=== PATIENT | male | born 1950 ===

== ENCOUNTER 2022-01-04 21:07 | Emergency (ER) | payer BC, OTHER ==
[2022-01-04] MEDS ORDERED: AMIODARONE HCL 150 MG/3 ML INJ IV ONE (21:08)
[2022-01-04] MEDS ORDERED: EPINEPHrine 1 MG/10 ML SYR IV ONE (21:08)
[2022-01-04] MEDS ORDERED: ETOMIDATE 20 MG/10 ML VIAL IV ONE (21:08)
[2022-01-04] MEDS ORDERED: SODIUM CHL 0.9% 1000 ML BAG IV ONE (21:08)
[2022-01-04] MEDS ORDERED: SUCCINYLCHOLINE 20 MG/ML (10 ML) IV ONE (21:08)
--- OUTSIDE RECORDS SUMMARY | 2022-01-04 21:13 | XMS REPORT | Continuity of Care Document ---
:1950 Author Organization [facility] t Address [address] [place] [address] Care Team Providers Name Role Phone Jania ENAMORADO Primary Care Physician DANA ESPAÑA Attending Clinician Unavailable Sigrid Attending Clinician Unavailable Jania ENAMORADO Attending Clinician THOMAS Attending Clinician Unavailable Sigrid Admitting Clinician Unavailable THOMAS Admitting Clinician Unavailable Payers Payer Name Policy Type Policy Number Effective Date Expiration Date Carine mikhail [place]: [id number] 2015 [employer] 00:00:00 STATE [facility] [id number] COMPANIES - PLAN F 00:00:00 (MEDICARE SUPPLEMENT) [place]: [id number] 2015 [employer] 00:00:00 - [facility] Problems Condition Condition Condition Status Onset Resolution Last Treating Co mments Source Name Details Category Date Date Treatment Clinician Date OTHER Diagnosis Active 2020-102021-10-10 Mem oria AMNESIA 2- 10:15:00 l OTHER 00:00: Riley AMNESIA 00 Active 10/03/2021 [facility] Basal cell Basal Cell Problem Active M [facility] carcinoma Carcinoma da of skin of Skin Medical Group Melanocyti Melanocyti Problem Active [facility] c nevus c Nevus [facility] Type 2 Type 2 Problem Active [place] diabetes Diabetes da mellitus Mellitus Medica l Group Type 2 Type 2 Problem Active [place] diabetes Diabetes da mellitus Mell[facility] Medica l without without Group complicati Complicati on on Essential Essential Problem Active [facility] hypertensi Hypertensi da on on Medical Group Coronary Coronary Problem Active [facility] [facility] arterioscl Arterioscl da erosis erosis Medical Group Actinic Actinic Problem Active [facility] keratosis Keratosis [facility] Shoulder Shoulder Problem Active [facility] pain Pain [facility] Pain in Pain in Problem Active [facility] elbow Elbow [facility] Fatigue Fatigue Problem Active [facility] Laboratory Laboratory Problem Active M [facility] test Test da result Result Medical abnormal Abnormal Group Amnesia Problem Active 2021-11-09 Shaheed tyson (finding) 03:06:20 l Amnesia Satartia (finding) Active Problem 11/09/2021 [facility] Hallucinat Problem Active 2021-11-09 M emoria ions 03:06:20 l (finding) Riley Hallucinat ions (finding) Active Problem 11/09/2021 [facility] Hyperlipid Problem Active 2021-11-09 M emoria emia 03:06:20 l (disorder) Aristides n Hyperlipid emia (disorder) Active Problem 11/09/2021 [facility] Hypertensi Problem Active 2021-11-09 M emoria ve 03:06:20 l disorder, Riley systemic Hypertensi arterial ve (disorder) disorder, systemic arterial (disorder) Active Problem 11/09/2021 [facility] Recurrent Problem Active 2021-11-09 Me moria falls 03:06:20 l (finding) Riley Recurrent falls (finding) Active Problem 11/09/2021 [facility] Tremor Problem Active 2021-11-09 Memor ia (finding) 03:06:20 l Tremor Riley (finding) Active Problem 11/09/2021 [facility] 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 Lewy body dementia type of the (disorder) Lewy body type (disorder) Active Problem 11/09/2021 [facility] OTHER Diagnosis Active 2021-10-10 Mem oria SPECIFIED 10:15:00 l CONGENITAL OTHER Raquel nn DEFORMITIE SPECIFIED S CONGENITAL DEFORMITIE S Active [facility] Disease Problem Resolve 2021-11-09 Mem oria caused by d 03:06:20 l 2019-nCoV Disease Herm speedy caused by 2018-nCoV Resolved Problem 11/09/2021 [facility] Traumatic Problem Resolve 2021-11-09 M emoria brain d 03:06:20 l injury Riley (disorder) Traumatic brain injury (disorder) Resolved Problem 11/09/2021 [facility] Allergies, Adverse Reactions, Alerts Allergy Allergy Status Severity Reaction(s) Onset Inactive Treating Comm ents Source Name Type Date Date Clinician COMBIVEN Allergy Active Hives Matjade Willson to [facility] Medical e Group Social History Social Habit Start Date Stop Date Quantity Comments Source Social History 2021-10-01 2021-10-01 [facility] 21:19:22 21:19:22 Tobacco use and 2020-07-21 2020-07-21 Smokeless tobacco Me [facility]odist exposure 00:00:00 00:00:00 non-user Hospital Sex Assigned At [birth year] [facility] 00:00:00 00:00:00 Hospital Smoking Status Start Date Stop Date Source Ex-smoker 2020-07-21 00:00:00 2020-07-21 00:00:00 [facility] Medications Ordered Filled Start Stop Current Ordering Indication Dosage Frequency Signature Comments Components Source Medication Medication Date Date Medication? 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, Weight Melatonin Yes Bedtime, 0 Me moria 1-11 Refill(s) l 22:10: Satartia 00 24 HR 2020-10 Yes = 1 patch, Memori a rivastigmin 2-22 TOP, l e 0.192 16:20: Daily, Riley MG/HR 00 apply to Transdermal area that Patch is [Exelon] clean/dry/ hairless & free of redness/ir ritation/b urns/cuts, # 30 patch, 2 Refill(s), Pharmacy: [id number], 175.26, cm, 10/01/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, Height, 116.818, kg, 10/01/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, Weight Nitroglycer 2020-10 Yes 0.4 mg = 1 Memoria in 0.4 MG 2-06 tab, SL, l Sublingual 21:27: Q5Min, 0 Her carroll Tablet 00 Refill(s) Potassium 2020-10 Yes 0 Memoria Chloride 2-06 Refill(s) l 21:27: Riley 00 erythromyci 2020-10 Yes 1 appl, Mem oria n 2-06 BOTH EYES, l ophthalmic 21:26: QID, # 3 Her carroll 0.5% 00 gm, 0 ointment Refill(s) Furosemide 2020-10 Yes 40 mg = 1 Me moria 40 MG Oral 2-06 tab, PO, l Tablet 21:26: Daily, # Satartia 00 90 tab, 1 Refill(s) DULoxetine 2020-10 Yes 60 mg = 1 Me moria 60 mg oral 2-06 cap, PO, l delayed 21:24: Daily, # Aristides n release 00 90 cap, 0 capsule Refill(s) aspirin 81 2020-10 Yes 324 mg = 4 M emoria mg oral 2-06 cap, PO, l capsule 21:24: Q4H, 0 Satartia 00 Refill(s) buPROPion 2020-10 Yes 300 mg = 1 Me moria 300 mg/24 2-06 tab, PO, l hours (XL) 21:23: Daily, # carroll oral 00 90 tab, 1 tablet, Refill(s) extended release irbesartan 2020-10 Yes 300 mg = 1 M emoria 300 mg oral 2-06 tab, PO, l tablet 21:23: Daily, # Riley 00 90 tab, 3 Refill(s) Hydrochloro 2020-10 Yes 25 mg = 1 M emoria thiazide 25 2-06 tab, PO, l MG Oral 21:23: Daily, # Aristides n Tablet 00 90 tab, 1 Refill(s) Metoprolol 2020-10 Yes 50 mg = 1 Me moria Succinate 2-06 tab, PO, l ER 50 mg 21:22: Daily, # Raquel nn oral 00 90 tab, 3 tablet, Refill(s) extended release clopidogrel 2020-10 Yes 75 mg = 1 M emoria 75 mg oral 2-06 tab, PO, l tablet 21:22: Daily, # Riley 00 90 tab, 3 Refill(s) isosorbide 2020-10 Yes 60 mg = 1 Me moria mononitrate 2-06 tab, PO, l 60 mg oral 21:22: QAM, # 90 He rmann tablet, 00 tab, 3 extended Refill(s) release atorvastati 2020-10 Yes 40 mg = 1 M emoria n 40 mg 2-06 tab, PO, l oral tablet 21:21: Bedtime, # Satartia 00 90 tab, 0 Refill(s) Metformin 2020-10 No 1,000 mg = Me moria hydrochlori 2-06 1 tab, PO, l de 1000 MG 21:21: BID-Meals, H ermann Oral Tablet 00 # 60 tab, 0 Refill(s) meloxicam 2020-10 Yes 15 mg = 1 Mem oria 15 mg oral 2-06 tab, PO, l tablet 21:21: Daily, # Riley 00 90 tab, 0 Refill(s) rosuvastati 2019-0 Yes Method i n (CRESTOR) 07-24 st 20 mg 08:00: Hospita tablet 05 l nitroglycer 2019-0 Yes prn Method i in 07-24 st (NITROSTAT) 08:00: Hospit a 0.4 MG SL 05 l tablet clopidogreL 2019-0 Yes 1 tab po Me thodi (PLAVIX) 75 07-[address] mg tablet 08:00: Hospita 05 l DULoxetine 2019-0 Yes TAKE TWO Met hodi (CYMBALTA) 07-[address] 60 MG 08:00: BY MOUTH Hospita capsule 05 ONCE DAILY l ezetimibe-s 2019- Yes TAKE ONE Me thodi imvastatin - TABLET BY st (VYTORIN) 08:00: MOUTH Hospita 10-40 mg 05 EVERY DAY l per tablet furosemide 2019-0 Yes 1 tab po Met hodi (LASIX) 40 - qd st mg tablet 08:00: Hospita 05 l hydroCHLORO 2020-0 Yes 1 tab po Me thodi thiazide - qd st (HYDRODIURI 08:00: Hospit a L) 25 MG 05 l tablet irbesartan 2019-0 Yes 1 tab po Met hodi (AVAPRO) - qd st 300 MG 08:00: Hospita tablet 05 l isosorbide 2019-0 Yes 1 tab po Met hodi mononitrate 07-[address] (IMDUR) 60 08:00: Hospita MG 24 hr 05 l tablet potassium 2019-0 Yes Take 1 Method i chloride 20 07-[address] mEq tablet 08:00: every day Ho spita extended 05 by oral l release route. metoprolol Yes TAKE 1 Metho di succinate 8-[address] XL 00:00: MOUTH ONCE Hospita (TOPROL-XL) 00 DAILY l 50 mg 24 hr tablet metFORMIN 2019- Yes TAKE 1 Method i (GLUCOPHAGE 8-[address] ) 1,000 mg 00:00: MOUTH Hospit a tablet 00 TWICE A l DAY buPROPion 2019- Yes TAKE 1 Method i XL 8-[address] (WELLBUTRIN 00:00: MOUTH Hospi ta XL) 300 MG 00 EVERY DAY l 24 hr tablet atorvastati Yes TAKE 1 Meth korey n (LIPITOR) 8-[address] 40 mg 00:00: MOUTH Hospita tablet 00 EVERY DAY l atorvastati atorvastati No atorvastat [place] n 40 mg n 40 mg in 40 mg da tablet TAKE tablet TAKE tablet Medical 1 TABLET BY 1 TABLET BY TAKE 1 Group MOUTH EVERY MOUTH EVERY TABLET BY DAY DAY MOUTH EVERY DAY bupropion bupropion No bupropion [place] HCl XL 300 HCl XL 300 HCl XL 300 da mg 24 hr mg 24 hr mg 24 hr Med ical tablet, tablet, tablet, Group extended extended extended release release release TAKE 1 TAKE 1 TAKE 1 TABLET BY TABLET BY TABLET BY MOUTH EVERY MOUTH EVERY MOUTH DAY DAY EVERY DAY clopidogrel clopidogrel No clopidogre [place] 75 mg 75 mg l 75 mg da tablet TAKE tablet TAKE tablet Medical 1 TABLET BY 1 TABLET BY TAKE 1 Group MOUTH EVERY MOUTH EVERY TABLET BY DAY DAY MOUTH EVERY DAY duloxetine duloxetine No duloxetine [place] 60 mg 60 mg 60 mg da capsule,del capsule,del capsule,de Medical ayed ayed layed Group release release release TAKE TWO TAKE TWO TAKE TWO CAPSULES BY CAPSULES BY CAPSULES MOUTH ONCE MOUTH ONCE BY MOUTH DAILY DAILY ONCE DAILY furosemide furosemide No furosemide [place] 40 mg 40 mg 40 mg da tablet 1 tablet 1 tablet 1 Medical tab po qd tab po qd tab po qd Group hydrochloro hydrochloro No hydrochlor [place] thiazide 25 thiazide 25 othiazide da mg tablet mg tablet 25 mg Medi luis antonio TAKE 1 TAKE 1 tablet Group TABLET BY TABLET BY TAKE 1 MOUTH EVERY MOUTH EVERY TABLET BY DAY DAY MOUTH EVERY DAY irbesartan irbesartan No irbesartan [place] 300 mg 300 mg 300 mg da tablet TAKE tablet TAKE tablet Medical 1 TABLET BY 1 TABLET BY TAKE 1 Group MOUTH EVERY MOUTH EVERY TABLET BY DAY DAY MOUTH EVERY DAY isosorbide isosorbide No isosorbide [place] mononitrate mononitrate mononitrat da ER 60 mg ER 60 mg e ER 60 mg M edical tablet,exte tablet,exte tablet,ext Group nded nded ended release 24 release 24 release 24 hr TAKE ONE hr TAKE ONE hr TAKE TABLET BY TABLET BY ONE TABLET MOUTH EVERY MOUTH EVERY BY MOUTH DAY DAY EVERY DAY meloxicam meloxicam No meloxicam [place] 15 mg 15 mg 15 mg da tablet TAKE tablet TAKE tablet Medical 1 TABLET BY 1 TABLET BY TAKE 1 Group MOUTH EVERY MOUTH EVERY TABLET BY DAY DAY MOUTH NEEDED NEEDED EVERY DAY NEEDED metformin metformin No metformin [place] 1,000 mg 1,000 mg 1,000 mg da tablet TAKE tablet TAKE tablet Medical 1 TABLET BY 1 TABLET BY TAKE 1 Group MOUTH TWICE MOUTH TWICE TABLET BY A DAY A DAY MOUTH TWICE A DAY metoprolol metoprolol No metoprolol [place] succinate succinate succinate da ER 50 mg ER 50 mg ER 50 mg Med ical tablet,exte tablet,exte tablet,ext Group nded nded ended release 24 release 24 release 24 hr TAKE 1 hr TAKE 1 hr TAKE 1 TABLET BY TABLET BY TABLET BY MOUTH EVERY MOUTH EVERY MOUTH DAY DAY EVERY DAY nitroglycer nitroglycer No nitroglyce [place] in 0.4 mg in 0.4 mg rin 0.4 mg da sublingual sublingual sublingual Medical tablet prn tablet prn tablet prn Group potassium potassium No 1 Q1D potassium [place] chloride ER chloride ER chloride da 20 mEq 20 mEq ER 20 mEq Medica l tablet,exte tablet,exte tablet,ext Group nded nded ended release release release Take 1 Take 1 Take 1 tablet tablet tablet every day every day every day by oral by oral by oral route. route. route. Proctosol Proctosol No Proctosol [place] HC 2.5 % HC 2.5 % HC 2.5 % da topical topical topical Medica l cream cream cream Group perineal perineal perineal applicator applicator applicator APPLY APPLY APPLY SPARINGLY SPARINGLY SPARINGLY TO AFFECTED TO AFFECTED TO AREA 2 TO 4 AREA 2 TO 4 AFFECTED TIMES A DAY TIMES A DAY AREA 2 TO 4 TIMES A DAY Symbicort Symbicort No Symbicort [place] 160 mcg-4.5 160 mcg-4.5 160 d a mcg/actuati mcg/actuati mcg-4.5 Medical on HFA on HFA mcg/actuat Group aerosol aerosol ion HFA inhaler inhaler aerosol INHALE 2 INHALE 2 inhaler PUFFS BY PUFFS BY INHALE 2 MOUTH TWICE MOUTH TWICE PUFFS BY A DAY FOR A DAY FOR MOUTH COVID COVID TWICE A DAY FOR COVID Immunizations Ordered Immunization Filled Immunization Date Status Commen ts Source Name Name zoster live zoster live 2012-10-27 Completed [facility] 00:00:00 [facility] Group Vital Signs Vital Name Observation Time Observation Value Comments Source BP Diastolic 2021-10-08 00:00:00 83 mm[Hg] [facility] Height 2021-10-08 00:00:00 68 [in_i] [facility] BMI (Body Mass 2021-10-08 00:00:00 39.3 kg/m2 [facility] Medical Index) Group BP Systolic 2021-10-08 00:00:00 127 mm[Hg] [facility] Body Weight 2021-10-08 00:00:00 4135 [oz_av] [facility] BP Diastolic 2021-09-06 00:00:00 67 mm[Hg] [facility] Height 2021-09-06 00:00:00 68 [in_i] [facility] BMI (Body Mass 2021-09-06 00:00:00 38.5 kg/m2 [facility] Medical Index) Group BP Systolic 2021-09-06 00:00:00 127 mm[Hg] [facility] Body Weight 2021-09-06 00:00:00 4052 [oz_av] [facility] BP Diastolic 2021-04-26 00:00:00 80 mm[Hg] [facility] Height 2021-04-26 00:00:00 68 [in_i] [facility] BMI (Body Mass 2021-04-26 00:00:00 38.5 kg/m2 [facility] Medical Index) Group BP Systolic 2021-04-26 00:00:00 138 mm[Hg] [facility] Body Weight 2021-04-26 00:00:00 4048 [oz_av] [facility] BP Diastolic 2021-01-18 00:00:00 74 mm[Hg] [facility] Height 2021-01-18 00:00:00 68 [in_i] [facility] BMI (Body Mass 2021-01-18 00:00:00 38.7 kg/m2 [facility] Medical Index) Group BP Systolic 2021-01-18 00:00:00 146 mm[Hg] [facility] Body Weight 2021-01-18 00:00:00 4068 [oz_av] [facility] BP Diastolic 2020-12-21 00:00:00 68 mm[Hg] [facility] Height 2020-12-21 00:00:00 68 [in_i] [facility] BMI (Body Mass 2020-12-21 00:00:00 37.6 kg/m2 [facility] Medical Index) Group BP Systolic 2020-12-21 00:00:00 104 mm[Hg] [facility] Body Weight 2020-12-21 00:00:00 3958 [oz_av] [facility] BP Diastolic 2020-06-20 00:00:00 81 mm[Hg] [facility] Height 2020-06-20 00:00:00 68 [in_i] [facility] BMI (Body Mass 2020-06-20 00:00:00 37.2 kg/m2 [facility] Medical Index) Group BP Systolic 2020-06-20 00:00:00 126 mm[Hg] [facility] Body Weight 2020-06-20 00:00:00 3910 [oz_av] [facility] BP Diastolic 2019-12-21 00:00:00 76 mm[Hg] [facility] Height 2019-12-21 00:00:00 68 [in_i] [facility] BMI (Body Mass 2019-12-21 00:00:00 36.9 kg/m2 [facility] Medical Index) Group BP Systolic 2019-12-21 00:00:00 143 mm[Hg] [facility] Body Weight 2019-12-21 00:00:00 3888 [oz_av] [facility] BP Diastolic 2019-08-19 00:00:00 75 mm[Hg] [facility] Height 2019-08-19 00:00:00 68 [in_i] [facility] BMI (Body Mass 2019-08-19 00:00:00 37.9 kg/m2 [facility] Medical Index) Group BP Systolic 2019-08-19 00:00:00 141 mm[Hg] [facility] Body Weight 2019-08-19 00:00:00 3984 [oz_av] [facility] BP Diastolic 2019-05-20 00:00:00 65 mm[Hg] [facility] Height 2019-05-20 00:00:00 68 [in_i] [facility] BMI (Body Mass 2019-05-20 00:00:00 38.9 kg/m2 [facility] Medical Index) Group BP Systolic 2019-05-20 00:00:00 101 mm[Hg] [facility] Body Weight 2019-05-20 00:00:00 4096 [oz_av] [facility] BP Diastolic 2019-02-18 00:00:00 70 mm[Hg] [facility] Height 2019-02-18 00:00:00 68 [in_i] [facility] BMI (Body Mass 2019-02-18 00:00:00 40.4 kg/m2 [facility] BP Systolic 2019-02-18 00:00:00 150 mm[Hg] [facility] Body Weight 2019-02-18 00:00:00 4256 [oz_av] [facility] Systolic (mm Hg) 2021-11-06 21:48:00 Shaheed rial Riley Diastolic (mm Hg) 2021-11-06 21:48:00 Mem orial [place] Heart Rate 2021-11-06 21:48:00 [facility] [place] Respitory Rate 2021-11-06 21:48:00 Memori al [place] Height 2021-11-06 21:48:00 175.26 cm [facility] Riley Weight 2021-11-06 21:48:00 [facility] BMI Calculated 2021-11-06 21:48:00 Memori al Riley Systolic (mm Hg) 2021-10-01 21:08:00 Shaheed rial Riley Diastolic (mm Hg) 2021-10-01 21:08:00 Mem orial Riley Heart Rate 2021-10-01 21:08:00 [facility] Respitory Rate 2021-10-01 21:08:00 Memori al [place]ia Height 2021-10-01 21:08:00 175.26 cm [facility] Riley Weight 2021-10-01 21:08:00 [facility] BMI Calculated 2021-10-01 21:08:00 Memori al [place] Procedures Procedure Date / Time Performing Clinician Source Performed MRI, brain, w/o contrast 2021-09-06 00:00:00 [facility] XR, chest 2020-12-21 00:00:00 [facility] Colonoscopy 2005-10-27 00:00:00 [facility] Appendectomy [facility] Tonsillectomy [facility] Procedure on Femur [facility] Colorectal Ca Screen Doc [facility] Heart [facility] Riley procedure<sup>1</sup> Appendix operation [facility] Plan of Care Planned Activity Planned Date Details Comments Source Future Scheduled Test 2021-11-27 COVID-19 VACCINE (1) [facility] 20:00:38 [code = COVID-19 VACCINE (1)] Future Scheduled Test 2021-11-27 65+ PNEUMOCOCCAL Me [facility] 20:00:38 VACCINE (1 of 2 - PPSV23) [code = 65+ PNEUMOCOCCAL VACCINE (1 of 2 - PPSV23)] Future Scheduled Test 2021-11-27 Hepatitis C screening [facility] 20:00:38 (procedure) [code = 009032631] Future Scheduled Test 2021-11-27 COLONOSCOPY SCREENING [facility] 20:00:38 [code = COLONOSCOPY SCREENING] Future Scheduled Test 2021-11-27 SHINGLES VACCINES [facility] 20:00:38 (#2) [code = SHINGLES VACCINES (#2)] Future Scheduled Test 2021-11-27 INFLUENZA VACCINE [facility] 20:00:38 [code = INFLUENZA VACCINE] Future Appointment 2022-01-06 Manuel [facility] brandondarian [facility] 00:00:00 [facility] [address]; , [place] [address] Encounters Start End Encounter Admission Attending Care Care Encounter Source Date/Time Date/Time Type Type Clinicians Facility Department ID 2021-12-18 2021-12-18 Outpatient STEPHON SZYMANSKI [id number] Memoria 15:45:00 15:45:00 02 l [place] 2021-11-06 2021-11-07 [facility] [id number] Memoria 21:45:00 05:59:59 r Neurology 01 l [facility] 2021-10-10 2021-10-11 Outpatient [facility] [id number] Memoria 16:01:00 05:59:00 r [place]art[place] 00 l [facility] 2021-10-10 2021-10-10 Outpatient [id number] 10:01:00 23:59:00 SAILAJA 2021-10-08 2021-10-08 [facility] [id number] [place] 10:19:00 10:19:00 213 Medical Group 2021-10-08 2021-10-08 Manuel [facility] [place] - [id number] [place] 00:00:00 00:00:00 Corbin Santiago Medical MD: [address], [place] [address] , Ph. 2021-10-01 2021-10-02 Outpatient nullFlavo [facility] [id number] Memoria 21:30:00 05:59:59 r Neurology 00 l [place] 2021-09-10 2021-09-10 Outpatient Zuniga_F MMG [facility] [id number] [place] 11:11:00 11:11:00 115 Medical Group 2021-09-06 2021-09-06 Outpatient Zuniga_F MMG [facility] [id number] [place] 09:33:00 09:33:00 111 Medical Group 2021-09-06 2021-09-06 Manuel [place] - [id number] [facility] 00:00:00 00:00:00 Corbin Santiago Medical MD: [address] [address], [place] [address] , Ph. 2021-09-06 2021-09-06 Transcribe Minor, [id number] Methodi 00:00:00 00:00:00 Orders Manuel [id number] [id number] Hospit [id number] l .8 2021-08-28 2021-08-28 [facility] [id number] [place] 02:58:00 02:58:00 102 Medical Group 2021-04-26 2021-04-26 Outpatient Zuniga_F MMG G [id number] [place] 09:27:00 09:27:00 701 Medical Group 2021-04-26 2021-04-26 Manuel [place] - [id number] [facility] 00:00:00 00:00:00 Corbin Santiago MD: [address] [address], [place] [address] , Ph. 2021-04-23 2021-04-23 Outpatient Zuniga_F MMG MMG [id number] [place] 01:38:00 01:38:00 628 da Medical Group 2021-04-23 2021-04-23 Outpatient Zuniga_F MMG MMG [id number] [place] 01:38:00 01:38:00 630 Medical Group 2021-01-18 2021-01-18 Outpatient Zuniga_F MMG MM [id number] [place] 09:10:00 09:10:00 325 Medical Group 2021-01-18 2021-01-18 Manuel [facility] [place] - [id number] [place] 00:00:00 00:00:00 Corbin Santiago MD: [address] [address], [place] [address] , Ph. 2020-12-21 2020-12-21 Outpatient Zuniga_F MMG MM [id number] [place] 09:24:00 09:24:00 225 Medical Group 2020-12-21 2020-12-21 Outpatient Zuniga_F MMG MMG [id number] [place] 09:24:00 09:24:00 302 Medical Group 2020-12-21 2020-12-21 [facility] [place] - [id number] [place] 00:00:00 00:00:00 Corbin Santiago MD: [address] [place] [address], [place] [address] , Ph. 2020-11-22 2020-11-22 Outpatient Zuniga_F MMG MMG [id number] [place] 09:40:00 09:40:00 222 Medical Group 2020-09-13 2020-09-13 Outpatient Zuniga_F MMG MMG [id number] [place] 02:27:00 02:27:00 118 da Medical Group 2020-08-17 2020-08-17 Outpatient Zuniga_F MMG MMG [id number] [place] 02:37:00 02:37:00 022 da Medical Group 2020-06-21 2020-06-21 Outpatient Zuniga_F MMG MMG [id number] [place] 04:54:00 04:54:00 826 da Medical Group 2020-06-20 2020-06-20 Outpatient Zuniga_F MMG MMG [id number] [place] 09:04:00 09:04:00 825 Medical Group 2020-06-20 2020-06-20 Manuel [facility] [place] - [id number] [place] 00:00:00 00:00:00 Corbin Santiago Medical MD: [address] [address], [place] [address] , Ph. 2020-06-14 2020-06-14 Outpatient Zuniga_F MMG MMG [id number] [place] 02:48:00 02:48:00 819 Medical Group 2019-12-21 2019-12-21 Outpatient Zuniga_F MMG MMG [id number] [place] 11:20:00 11:20:00 225 Medical Group 2019-12-21 2019-12-21 Manuel [facility] [place] - [id number] [place] 00:00:00 00:00:00 Corbin Santiago MD: [address] [address], [place] [address] , Ph. 2019-12-20 2019-12-20 Outpatient Zuniga_F MMG MMG [id number] [place] 03:54:00 03:54:00 224 Medical Group 2019-11-04 2019-11-04 Outpatient Zuniga_F MMG MMG [id number] [place] 11:59:00 11:59:00 109 Medical Group 2019-08-19 2019-08-19 [facility] [place] - [id number] [place] 00:00:00 00:00:00 Corbin Santiago Medical MD: [address] [facility] [address], [place] [address] , Ph. 2019-05-20 2019-05-20 Manuel [facility] [place] - [id number] [place] 00:00:00 00:00:00 Corbin Santiago MD: [address] [facility], [facility] [address], [place] [address] , Ph. 2019-02-18 2019-02-18 Manuel [facility] [place] - [id number] [place] 00:00:00 00:00:00 Corbin Santiago MD: [address] [facility] [address], [place] [address] , Ph. 2017-10-16 2017-10-16 [facility] [id number] 23:14:00 23:14:00 [facility] Results Test Description Test Time Test Comments Results Result Comments Source CBC W Auto Differential panel - Blood 2020-12-12 05:20:00 Test Item Value Reference Range Interpretation Comme nts white blood count (test code = white blood count) 7.8 K/uL 4.0- 12.3 red blood count (test code = red blood count) 4.95 M/uL 3.80-5.8 0 hemoglobin (test code = hemoglobin) 14.9 g/dL 11.7-17.2 hematocrit (test code = hematocrit) 44.6 % 35.0-51.0 MCV [Entitic volume] (test code = 19888-5) 90.1 fL 83-100 mean corpuscular hemoglobin (test code = mean corpuscular 30.1 pg 26.8-33.4 hemoglobin) mean corpuscular HGB conc (test code = mean corpuscular HGB 33.4 g/ dL 30-35 conc) red cell distribution width (test code = red cell 13.2 % 12.0 -14.0 distribution width) platelet count (test code = platelet count) 227 K/uL 175-450 mean platelet volume (test code = mean platelet volume) 12.2 fL 9.4-12.6 Segmented neutrophils/100 leukocytes in Blood (test code = 61.5 % 44.7-82.4 17657-2) Immature granulocytes [#/volume] in Blood (test code = 0.0 K/uL 0.0-0.03 H 44304-1) lymphocyte% (test code = lymphocyte%) 20.7 % 10.0-50.0 mono % (test code = mono %) 16.1 % 3.9-13.4 H eos % (test code = eos %) 0.8 % 0.0-6.4 Basophils/100 leukocytes in Unspecified specimen (test code 0.4 % 0.2-1.2 = 50334-7) Band form neutrophils [#/volume] in Blood (test code = 4.81 K/uL 1.78-5.38 48279-5) Lymphocytes [#/volume] in Unspecified specimen by Automated 1.6 K/u L 1.32-3.57 count (test code = 28509-3) mono # (test code = mono #) 1.26 K/uL 0.30-0.82 H eos # (test code = eos #) 0.06 K/uL 0.04-0.54 basophil # (test code = basophil #) 0.03 K/uL 0.01-0.08 NRBC% (test code = NRBC%) 0 /100 WBC 0-0.2 NRBC# (test code = NRBC#) 0 K/uL [facility] method unspecified - [id number] 05:20:00NeutrophilsBandLymphocyteAtypical LymphMonocyteBasophilAbs Neutrophil Count (Man)Abs Lymph Count (Man)Abs Monocyte Count (Man)Abs Eosinophil Count (Man)Abs Basophil Count (Man)Platelet EstimatePlatelet MorphologyPoikilocytosisSchistocytesTarget CellsToxic GranulationMatagoMerit Health River OaksBasic metabolic 2000 panel - Serum or [id number] 05:20:00 Test Item Value Reference Range Interpretation Comments glucose (test code = glucose) 109 mg/dL 82-115 Urea nitrogen [Mass/volume] in 20 mg/dL 8-23 Serum or Plasma (test code = 3094-0) osmolality calculated,serum (test 288 mOsm/kg 280-300 code = osmolality calculated,serum) creatinine (test code = 0.9 mg/dL 0.70-1.20 creatinine) glomerular filtration rate (test >60.00 code = glomerular filtration rate) Urea nitrogen/Creatinine [Mass 22.2 12-20 H Ratio] in Serum or Plasma (test code = 3097-3) sodium level (test code = sodium 143 mmol/L 135-145 level) Potassium [Moles/volume] in Body 5.2 mmol/L 3.5-5.2 fluid (test code = 2821-7) chloride level (test code = 105 mmol/L 98-108 chloride level) CO2 (test code = CO2) 27 mmol/L 21-32 anion gap (test code = anion gap) 16.2 mEq/L 12-20 calcium level (test code = 9.5 mg/dL 8.8-10.2 calcium level) [facility] HospitalHepatic function 2000 panel - Serum or [id number] 05:20:00 Test Item Value Reference Range Interpretation Comments total protein (test code = total 6.1 g/dL 6.6-8.7 L protein) albumin (test code = albumin) 3.3 g/dL 3.5-5.2 L bilirubin,total (test code = <0.3 0.0-1.2 bilirubin,total) Bilirubin.direct [Mass/volume] in <0.20 0.0-0.3 Serum or Plasma (test code = 1968-7) AST/SGOT (test code = AST/SGOT) 41 U/L 15-40 H Alanine aminotransferase [Enzymatic 47 U/L 0-41 H activity/volume] in Serum or Plasma (test code = 1742-6) Alkaline phosphatase [Enzymatic 50 U/L 40-130 activity/volume] in Serum or Plasma (test code = 6768-6) [facility] W Auto Differential panel - [id number] 01:59:00 Test Item Value Reference Range Interpretation Comments white blood count (test code = 5.5 K/uL 4.0-12.3 white blood count) red blood count (test code = red 4.85 M/uL 3.80-5.80 blood count) hemoglobin (test code = 14.7 g/dL 11.7-17.2 hemoglobin) hematocrit (test code = 43.1 % 35.0-51.0 hematocrit) MCV [Entitic volume] (test code = 88.9 fL 83-100 99262-9) mean corpuscular hemoglobin (test 30.3 pg 26.8-33.4 code = mean corpuscular hemoglobin) mean corpuscular HGB conc (test 34.1 g/dL 30-35 code = mean corpuscular HGB conc) red cell distribution width (test 12.9 % 12.0-14.0 code = red cell distribution width) platelet count (test code = 219 K/uL 175-450 platelet count) mean platelet volume (test code = 12.4 fL 9.4-12.6 mean platelet volume) Segmented neutrophils/100 59.2 % 44.7-82.4 leukocytes in Blood (test code = 47531-3) Immature granulocytes [#/volume] 0.0 K/uL 0.0-0.03 in Blood (test code = 34925-3) lymphocyte% (test code = 25.0 % 10.0-50.0 lymphocyte%) mono % (test code = mono %) 15.0 % 3.9-13.4 H eos % (test code = eos %) 0.2 % 0.0-6.4 Basophils/100 leukocytes in 0.2 % 0.2-1.2 Unspecified specimen (test code = 46428-6) Band form neutrophils [#/volume] 3.24 K/uL 1.78-5.38 in Blood (test code = 07901-1) Lymphocytes [#/volume] in 1.4 K/uL 1.32-3.57 Unspecified specimen by Automated count (test code = 46074-9) mono # (test code = mono #) 0.82 K/uL 0.30-0.82 eos # (test code = eos #) 0.01 K/uL 0.04-0.54 L basophil # (test code = basophil 0.01 K/uL 0.01-0.08 #) NRBC% (test code = NRBC%) 0 /100 WBC 0-0.2 NRBC# (test code = NRBC#) 0 K/uL [facility] HospitalComprehensive metabolic 1999 panel - Serum or Plasma 2020-12-11 01:59:00 Test Item Value Reference Range Interpretation Comments Glucose [Mass/volume] in Serum or 121 mg/dL 82-115 H Plasma (test code = 2345-7) Urea nitrogen [Mass/volume] in 21 mg/dL 8-23 Serum or Plasma (test code = 3094-0) osmolality calculated,serum (test 284 mOsm/kg 280-300 code = osmolality calculated,serum) creatinine (test code = 0.8 mg/dL 0.70-1.20 creatinine) glomerular filtration rate (test >60.00 code = glomerular filtration rate) Urea nitrogen/Creatinine [Mass 26.3 12-20 H Ratio] in Serum or Plasma (test code = 3097-3) sodium level (test code = sodium 140 mmol/L 135-145 level) potassium level (test code = 4.1 mmol/L 3.5-5.2 potassium level) chloride level (test code = 104 mmol/L 98-108 chloride level) CO2 (test code = CO2) 27 mmol/L 21-32 anion gap (test code = anion gap) 13.1 mEq/L 12-20 calcium level (test code = 9.3 mg/dL 8.8-10.2 calcium level) total protein (test code = total 5.9 g/dL 6.6-8.7 L protein) albumin (test code = albumin) 3.2 g/dL 3.5-5.2 L globulin (test code = globulin) 2.7 gm/dL A/G ratio (test code = A/G ratio) 1.2 >1.0 bilirubin,total (test code = <0.3 0.0-1.2 bilirubin,total) AST/SGOT (test code = AST/SGOT) 29 U/L 15-40 Alanine aminotransferase 30 U/L 0-41 [Enzymatic activity/volume] in Serum or Plasma (test code = 1742-6) Alkaline phosphatase [Enzymatic 45 U/L 40-130 activity/volume] in Serum or Plasma (test code = 6768-6) [facility] HospitalHep[facility] function 2000 panel - Serum or [id number] 01:59:00 Test Item Value Reference Range Interpretation Comments Bilirubin.direct [Mass/volume] in Serum <0.20 0.0-0.3 or Plasma (test code = 1968-7) [facility] W Auto Differential panel - [id number] 02:03:00 Test Item Value Reference Range Interpretation Comments white blood count (test code = 5.4 K/uL 4.0-12.3 white blood count) red blood count (test code = red 4.91 M/uL 3.80-5.80 blood count) hemoglobin (test code = 14.7 g/dL 11.7-17.2 hemoglobin) hematocrit (test code = 43.7 % 35.0-51.0 hematocrit) MCV [Entitic volume] (test code = 89.0 fL 83-100 29822-0) mean corpuscular hemoglobin (test 29.9 pg 26.8-33.4 code = mean corpuscular hemoglobin) mean corpuscular HGB conc (test 33.6 g/dL 30-35 code = mean corpuscular HGB conc) red cell distribution width (test 12.9 % 12.0-14.0 code = red cell distribution width) platelet count (test code = 206 K/uL 175-450 platelet count) mean platelet volume (test code = 12.2 fL 9.4-12.6 mean platelet volume) Segmented neutrophils/100 55.8 % 44.7-82.4 leukocytes in Blood (test code = 99599-5) Immature granulocytes [#/volume] 0.0 K/uL 0.0-0.03 H in Blood (test code = 01515-7) lymphocyte% (test code = 24.3 % 10.0-50.0 lymphocyte%) mono % (test code = mono %) 18.9 % 3.9-13.4 H eos % (test code = eos %) 0.2 % 0.0-6.4 Basophils/100 leukocytes in 0.2 % 0.2-1.2 Unspecified specimen (test code = 03504-7) Band form neutrophils [#/volume] 3.04 K/uL 1.78-5.38 in Blood (test code = 94999-8) Lymphocytes [#/volume] in 1.3 K/uL 1.32-3.57 L Unspecified specimen by Automated count (test code = 77599-6) mono # (test code = mono #) 1.03 K/uL 0.30-0.82 H eos # (test code = eos #) 0.01 K/uL 0.04-0.54 L basophil # (test code = basophil 0.01 K/uL 0.01-0.08 #) NRBC% (test code = NRBC%) 0 /100 WBC 0-0.2 NRBC# (test code = NRBC#) 0 K/uL [facility] HospitalDifferential panel, method unspecified - [id number] 02:03:00NeutrophilsBandLymphocyteAtypical LymphMonocyteEosinophilBasophilMetamyelocyteMyelocytePromyelocyteBlastsNucleated Red Blood CellAbs Neutrophil Count (Man)Abs Lymph Count (Man)Abs Monocyte Count (Man)Abs Eosinophil Count (Man)Abs Basophil Count (Man)Platelet EstimatePlatelet MorphologyHypochromasiaPoik ilocytosisAnisocytosisMicrocytosisTarget CellsOvalocytesToxic GranulationBurr CellsToxic VacuolationSmudge CellsMaAllegiance Specialty Hospital of GreenvilleBasic metabolic 2000 panel - Serum or [id number] 02:03:00 Test Item Value Reference Range Interpretation Comments Glucose [Mass/volume] in Serum or 132 mg/dL 82-115 H Plasma (test code = 2345-7) Urea nitrogen [Mass/volume] in 23 mg/dL 8-23 Serum or Plasma (test code = 3094-0) osmolality calculated,serum (test 283 mOsm/kg 280-300 code = osmolality calculated,serum) creatinine (test code = 1.0 mg/dL 0.70-1.20 creatinine) glomerular filtration rate (test >60.00 code = glomerular filtration rate) Urea nitrogen/Creatinine [Mass 23.0 12-20 H Ratio] in Serum or Plasma (test code = 3097-3) sodium level (test code = sodium 139 mmol/L 135-145 level) potassium level (test code = 3.8 mmol/L 3.5-5.2 potassium level) chloride level (test code = 102 mmol/L 98-108 chloride level) CO2 (test code = CO2) 27 mmol/L 21-32 anion gap (test code = anion gap) 13.8 mEq/L 12-20 calcium level (test code = 9.4 mg/dL 8.8-10.2 calcium level) [facility] W Auto Differential panel - [id number] 02:24:00 Test Item Value Reference Range Interpretation Comments white blood count (test code = 3.2 K/uL 4.0-12.3 L white blood count) red blood count (test code = red 4.91 M/uL 3.80-5.80 blood count) hemoglobin (test code = 15.1 g/dL 11.7-17.2 hemoglobin) hematocrit (test code = 46.2 % 35.0-51.0 hematocrit) MCV [Entitic volume] (test code = 94.1 fL 83-100 82655-9) mean corpuscular hemoglobin (test 30.8 pg 26.8-33.4 code = mean corpuscular hemoglobin) mean corpuscular HGB conc (test 32.7 g/dL 30-35 code = mean corpuscular HGB conc) red cell distribution width (test 13.0 % 12.0-14.0 code = red cell distribution width) platelet count (test code = 165 K/uL 175-450 L platelet count) mean platelet volume (test code = 11.9 fL 9.4-12.6 mean platelet volume) Segmented neutrophils/100 47.2 % 44.7-82.4 leukocytes in Blood (test code = 06907-1) Immature granulocytes [#/volume] 0.0 K/uL 0.0-0.03 H in Blood (test code = 29621-5) lymphocyte% (test code = 29.1 % 10.0-50.0 lymphocyte%) mono % (test code = mono %) 22.5 % 3.9-13.4 H eos % (test code = eos %) 0 % 0.0-6.4 Basophils/100 leukocytes in 0.6 % 0.2-1.2 Unspecified specimen (test code = 96116-8) Band form neutrophils [#/volume] 1.51 K/uL 1.78-5.38 L in Blood (test code = 84892-9) Lymphocytes [#/volume] in 0.9 K/uL 1.32-3.57 L Unspecified specimen by Automated count (test code = 63407-8) mono # (test code = mono #) 0.72 K/uL 0.30-0.82 eos # (test code = eos #) 0.00 K/uL 0.04-0.54 L basophil # (test code = basophil 0.02 K/uL 0.01-0.08 #) NRBC% (test code = NRBC%) 0 /100 WBC 0-0.2 NRBC# (test code = NRBC#) 0 K/uL [facility] HospitalDifferential panel, method unspecified - [id number] 02:24:00NeutrophilsBandLymphocyteAtypical LymphMonocyteEosinophilBasophilMetamyelocyteMyelocytePromyelocyteBlastsNucleated Red Blood CellAbs Neutrophil Count (Man)Abs Lymph Count (Man)Abs Monocyte Count (Man)Abs Eosinophil Count (Man)Abs Basophil Count (Man)Platelet EstimatePlatelet MorphologyHypochromasiaPoik ilocytosisAnisocytosisMicrocytosisTarget CellsOvalocytesBurr CellsMaAllegiance Specialty Hospital of GreenvilleBasic metabolic 2000 panel - Serum or [id number] 02:24:00 Test Item Value Reference Range Interpretation Comments Glucose [Mass/volume] in Serum or 137 mg/dL 82-115 H Plasma (test code = 2345-7) Urea nitrogen [Mass/volume] in 23 mg/dL 8-23 Serum or Plasma (test code = 3094-0) osmolality calculated,serum (test 282 mOsm/kg 280-300 code = osmolality calculated,serum) creatinine (test code = 1.0 mg/dL 0.70-1.20 creatinine) glomerular filtration rate (test >60.00 code = glomerular filtration rate) Urea nitrogen/Creatinine [Mass 23.0 12-20 H Ratio] in Serum or Plasma (test code = 3097-3) sodium level (test code = sodium 138 mmol/L 135-145 level) potassium level (test code = 3.7 mmol/L 3.5-5.2 potassium level) chloride level (test code = 102 mmol/L 98-108 chloride level) CO2 (test code = CO2) 27 mmol/L 21-32 anion gap (test code = anion gap) 12.7 mEq/L 12-20 calcium level (test code = 9.0 mg/dL 8.8-10.2 calcium level) [facility] HospitalD-Lactate [Moles/volume] in Serum or [id number] 02:24:00 Test Item Value Reference Range Interpretation Comments LDH (test code = LDH) 203 U/L 135-225 [facility] HospitalC reactive protein [Mass/volume] in Serum or Plasma by High sensitivity [id number] 02:24:00 Test Item Value Reference Range Interpretation Comments C-reactive protein high sens. (test 15.7 mg/L 0.0-5.0 H code = C-reactive protein high sens.) [facility] HospitalLipid 1996 panel - Serum or [id number] 02:24:00 Test Item Value Reference Range Interpretation Comments cholesterol level (test code = 133 mg/dL 150-200 L cholesterol level) triglycerides level (test code = 57 mg/dL <150 triglycerides level) HDL cholesterol (test code = HDL 27 mg/dL >55 L cholesterol) LDL cholesterol direct (test code = 95 mg/dL <100 LDL cholesterol direct) cholesterol risk ratio (test code = 4.925 cholesterol risk ratio) [facility] HospitalFerritin [Mass/volume] in Serum or [id number] 02:24:00 Test Item Value Reference Range Interpretation Comments ferritin (test code = ferritin) 400.0 NG/mL 30-400 [facility] HospitalHemoglobin A1c [Mass/volume] in [id number] 02:24:00 Test Item Value Reference Range Interpretation Comments Hemoglobin A1c [Mass/volume] in Blood 5.9 % 4.4-6.4 (test code = 53763-3) [facility] Hospitaluccp2021-02-12 16:29:00ResultsBatson Children'S Hospitaluccp 2020-12-08 16:29:00ResultsMagnolia Regional Health CenterARS-CoV-2 (COVID-19) RNA [Presence] in Respiratory specimen by BRYANNA with probe [id number] 07:42:9242874-9ExeewsdzhBatson Children'S HospitalUrinalysis complete panel - Urine 2020-12-08 07:42:00 Test Item Value Reference Range Interpretation Comments Color of Urine by Auto (test yellow code = 31300-1) Appearance of Urine (test code clear clear = 5767-9) Glucose [Presence] in Urine by negative negative Automated test strip (test code = 63863-1) Bilirubin.total [Mass/volume] negative negative in Urine (test code = 1978-6) Ketones [Mass/volume] in Urine =1 negative H by Automated test strip (test code = 86553-2) Specific gravity of Urine by 1.019 1.003-1.030 Automated test strip (test code = 95867-5) blood urine (test code = blood negative negative urine) pH of Urine (test code = 5.500 5-9 2756-5) protein urine (UA) (test code = trace negative protein urine (UA)) Urobilinogen [Presence] in normal 0.2-1.0 Urine (test code = 22289-6) Nitrite [Presence] in Urine by negative negative Test strip (test code = 5802-4) Leukocyte esterase [Presence] negative negative in Urine by Automated test strip (test code = 93035-5) Erythrocytes [#/volume] in <1 0-5 Urine by Automated count (test code = 798-9) Leukocytes [#/area] in Urine =1-5 0-5 sediment by Automated count (test code = 23542-1) Epithelial cells [Presence] in <1 0-5 Urine sediment by Light microscopy (test code = 95085-0) Bacteria identified in Urine by none detected none detect Culture (test code = 630-4) Casts [#/area] in Urine =2-5 none detect sediment by Automated count (test code = 79387-2) urine culture added? (test code no = urine culture added?) [facility] W Auto Differential panel - [id number] 07:30:00 Test Item Value Reference Range Interpretation Comments white blood count (test code = 4.9 K/uL 4.0-12.3 white blood count) red blood count (test code = red 5.32 M/uL 3.80-5.80 blood count) hemoglobin (test code = 16.2 g/dL 11.7-17.2 hemoglobin) hematocrit (test code = 46.6 % 35.0-51.0 hematocrit) MCV [Entitic volume] (test code = 87.6 fL 83-100 76028-7) mean corpuscular hemoglobin (test 30.5 pg 26.8-33.4 code = mean corpuscular hemoglobin) mean corpuscular HGB conc (test 34.8 g/dL 30-35 code = mean corpuscular HGB conc) red cell distribution width (test 12.7 % 12.0-14.0 code = red cell distribution width) platelet count (test code = 182 K/uL 175-450 platelet count) mean platelet volume (test code = 11.8 fL 9.4-12.6 mean platelet volume) Segmented neutrophils/100 67.1 % 44.7-82.4 leukocytes in Blood (test code = 69354-2) Immature granulocytes [#/volume] 0.0 K/uL 0.0-0.03 in Blood (test code = 55771-6) lymphocyte% (test code = 17.2 % 10.0-50.0 lymphocyte%) mono % (test code = mono %) 13.7 % 3.9-13.4 H eos % (test code = eos %) 1.4 % 0.0-6.4 Basophils/100 leukocytes in 0.4 % 0.2-1.2 Unspecified specimen (test code = 24841-5) Band form neutrophils [#/volume] 3.27 K/uL 1.78-5.38 in Blood (test code = 32569-3) Lymphocytes [#/volume] in 0.8 K/uL 1.32-3.57 L Unspecified specimen by Automated count (test code = 39899-4) mono # (test code = mono #) 0.67 K/uL 0.30-0.82 eos # (test code = eos #) 0.07 K/uL 0.04-0.54 basophil # (test code = basophil 0.02 K/uL 0.01-0.08 #) NRBC% (test code = NRBC%) 0 /100 WBC 0-0.2 NRBC# (test code = NRBC#) 0 K/uL [facility] HospitalDifferential panel, method unspecified - [id number] 07:30:00NeutrophilsBandLymphocyteAtypical LymphMonocyteEosinophilBasophilMetamyelocyteMyelocytePromyelocyteBlastsNucleated Red Blood CellAbs Neutrophil Count (Man)Abs Lymph Count (Man)Abs Monocyte Count (Man)Abs Eosinophil Count (Man)Abs Basophil Count (Man)Platelet Estimate [facility] HospitalLactate [Mass/volume] in Serum or [id number] 07:30:00 Test Item Value Reference Range Interpretation Comments lactic acid (test code = lactic 1.48 mmol/L 0.5-2.2 acid) [facility] HospitalComprehensive metabolic 2000 panel - Serum or Plasma 2020-12-08 07:30:00 Test Item Value Reference Range Interpretation Comments glucose (test code = glucose) 110 mg/dL 82-115 Urea nitrogen [Mass/volume] in 18 mg/dL 8-23 Serum or Plasma (test code = 3094-0) osmolality calculated,serum (test 269 mOsm/kg 280-300 L code = osmolality calculated,serum) creatinine (test code = 1.1 mg/dL 0.70-1.20 creatinine) glomerular filtration rate (test >60.00 code = glomerular filtration rate) Urea nitrogen/Creatinine [Mass 16.4 12-20 Ratio] in Serum or Plasma (test code = 3097-3) sodium level (test code = sodium 133 mmol/L 135-145 L level) Potassium [Moles/volume] in Body 3.1 mmol/L 3.5-5.2 L fluid (test code = 2821-7) chloride level (test code = 93 mmol/L 98-108 L chloride level) CO2 (test code = CO2) 27 mmol/L 21-32 anion gap (test code = anion gap) 16.1 mEq/L 12-20 calcium level (test code = 9.1 mg/dL 8.8-10.2 calcium level) total protein (test code = total 7.1 g/dL 6.6-8.7 protein) albumin (test code = albumin) 3.9 g/dL 3.5-5.2 globulin (test code = globulin) 3.2 gm/dL A/G ratio (test code = A/G ratio) 1.2 >1.0 bilirubin,total (test code = 0.4 mg/dL 0.0-1.2 bilirubin,total) AST/SGOT (test code = AST/SGOT) 35 U/L 15-40 Alanine aminotransferase 23 U/L 0-41 [Enzymatic activity/volume] in Serum or Plasma (test code = 1742-6) Alkaline phosphatase [Enzymatic 56 U/L 40-130 activity/volume] in Serum or Plasma (test code = 6768-6) [facility] GroupMagnesium [Moles/volume] in Unspecified specimen 2020-12-08 07:30:00 Test Item Value Reference Range Interpretation Comments magnesium level (test code = 1.5 mg/dL 1.6-2.4 L magnesium level) [facility] GroupD-Lactate [Moles/volume] in Serum or [id number] 07:30:00 Test Item Value Reference Range Interpretation Comments Lactate dehydrogenase in body 257 U/L 135-225 H fluid/Lactate dehydrogenase in serum (test code = 29050-4) [facility] GroupC reactive protein [Mass/volume] in Serum or Plasma by High sensitivity [id number] 07:30:00 Test Item Value Reference Range Interpretation Comments C-reactive protein high sens. (test 15.4 mg/L 0.0-5.0 H code = C-reactive protein high sens.) [facility] GroupFerritin [Mass/volume] in Serum or [id number] 07:30:00 Test Item Value Reference Range Interpretation Comments ferritin (test code = ferritin) 448.8 NG/mL 30-400 H [facility] GroupCreatine kinase [Enzymatic activity/volume] in Serum or [id number] 07:30:00 Test Item Value Reference Range Interpretation Comments creatine kinase (test code = creatine 199 U/L 20-200 kinase) [facility] GroupNatriuretic peptide.B prohormone N-Terminal [Mass/volume] in Serum or [id number] 07:30:00 Test Item Value Reference Range Interpretation Comments N-term pro natriuretic peptide (test 51 pg/mL 0-125 code = N-term pro natriuretic peptide) [facility] GroupTroponin I.cardiac [Mass/volume] in [id number] 07:30:00 Test Item Value Reference Range Interpretation Comments cardiac troponin I (test code = cardiac <0.30 0.0-0.5 troponin I) [facility] HospitalCreatine kinase.MB [Mass/volume] in Serum or Plasma 2020-12-08 07:30:00 Test Item Value Reference Range Interpretation Comments Creatine kinase.MB [Mass/volume] in 4.8 NG/mL 0.0-3.6 H Serum or Plasma by Immunoassay (test code = 31501-7) [facility] HospitalPT/[id number] 07:30:00 Test Item Value Reference Range Interpretation Comments prothrombin time (test code = 11.0 seconds 10.3-12.3 prothrombin time) INR in Blood by Coagulation 1.03 assay (test code = 10015-0) [facility] Hospitalpartial thromboplastin [id number] 07:30:00 Test Item Value Reference Range Interpretation Comments INR in Blood by Coagulation 27.1 seconds 22.5-37.0 assay (test code = 13443-2) [facility] Hospitallprocal2021-02-12 07:30:00 Test Item Value Reference Range Interpretation Comments Procalcitonin [Mass/volume] in 0.1 NG/mL 0.0-0.8 Serum or Plasma (test code = 82599-8) [facility] HospitalABO & Rh group [Type] in [id number] 02:53:00 Test Item Value Reference Range Interpretation Comments Rh [Type] in Blood (test code = 4+ 10508-8) ABO and Rh group panel - Blood A positive (test code = 91749-0) [facility] HospitalPartial Thromboplastin [id number] 08:01:05 Test Item Value Reference Range Interpretation Comments Partial Thromboplastin Time 29.80 seconds 24.39-37.25 (test code = Partial Thromboplastin Time) Prothrombin Time and [id number] 08:01:02 Test Item Value Reference Range Interpretation Comments Prothrombin Time (test code = 12.1 seconds 9.8-13.4 Prothrombin Time) INR (test code = INR) 1.0 ratio 0.6-1.2 Comprehensive Metabolic [id number] 08:00:15 Test Item Value Reference Range Interpretation Comments Sodium Level (test code = Sodium 142.0 mmol/L 135.0-145.0 Level) Potassium Level (test code = 4.1 mmol/L 3.5-5.1 Potassium Level) Chloride Level (test code = 101 mmol/L 98-105 Chloride Level) CO2 (test code = CO2) 30 mmol/L 22-29 H Anion Gap (test code = Anion 11 mmol/L 7-16 Gap) BUN (test code = BUN) 17.80 mg/dL 8.00-23.00 Creatinine Level (test code = 1.10 mg/dL 0.70-1.20 Creatinine Level) BUN/Creat Ratio (test code = 16 N BUN/Creat Ratio) Glucose Level (test code = 125 mg/dL 70-115 H Glucose Level) Calcium Level (test code = 9.8 mg/dL 8.3-10.5 Calcium Level) Alk Phos (test code = Alk Phos) 73 U/L 40-129 Bilirubin Total (test code = 0.2 mg/dL 0.1-0.9 Bilirubin Total) Albumin Level (test code = 4.0 g/dL 3.5-5.2 Albumin Level) Protein Total (test code = 6.6 g/dL 6.4-8.3 Protein Total) ALT (test code = ALT) 11 U/L 1-41 AST (test code = AST) 11 U/L 1-40 Globulin (test code = Globulin) 2.6 g/dL 2.9-3.1 L A/G Ratio (test code = A/G 1.5 ratio N Ratio) Comprehensive Metabolic [id number] 08:00:15 Test Item Value Reference Range Interpretation Comments Sodium Level (test 142.0 mmol/L 135.0-145.0 code = Sodium Level) Potassium Level 4.1 mmol/L 3.5-5.1 (test code = Potassium Level) Chloride Level (test 101 mmol/L 98-105 code = Chloride Level) CO2 (test code = 30 mmol/L 22-29 H CO2) Anion Gap (test code 11 mmol/L 7-16 = Anion Gap) BUN (test code = 17.80 mg/dL 8.00-23.00 BUN) Creatinine Level 1.10 mg/dL 0.70-1.20 (test code = Creatinine Level) BUN/Creat Ratio 16 N (test code = BUN/Creat Ratio) Glucose Level (test 125 mg/dL 70-115 H code = Glucose Level) Calcium Level (test 9.8 mg/dL 8.3-10.5 code = Calcium Level) Alk Phos (test code 73 U/L 40-129 = Alk Phos) Bilirubin Total 0.2 mg/dL 0.1-0.9 (test code = Bilirubin Total) Albumin Level (test 4.0 g/dL 3.5-5.2 code = Albumin Level) Protein Total (test 6.6 g/dL 6.4-8.3 code = Protein Total) ALT (test code = 11 U/L 1-41 ALT) AST (test code = 11 U/L 1-40 AST) Globulin (test code 2.6 g/dL 2.9-3.1 L = Globulin) A/G Ratio (test code 1.5 ratio N = A/G Ratio) eGFR AA (test code = >60 N eGFR (e stimated eGFR AA) mL/min/1.73 m2 Glomerular Filtration Rate ) is an estimated va lue, calculated from the patient's serum creatinine usin g the MDRD equation. It is NOT the patient 's actual GFR. The eGFR provides a more clinically usef ul measure of kidn ey disease than se rum creatinine alone.This calculation conner es sex and race in to account, if the information is provided. If th e race is not provided, and t he patient is -Doris n, multiply by 1.2 12. If sex is not provided, and t he patient is fema le, multiply by 0.7 42. Results for pat ients <18 years of ag e have not been validated by th e MDRD study and should be interpreted wit h caution. eGFR R esult Interpretation: eGFR > or = 60 is in the Normal RangeeGF R < 60 may mean kid ondina diseaseeGFR < 1 5 may mean kidney failure Rang es recommended by the National Kidney Foundation, http://nkdep.ni h.gov Comprehensive Metabolic [id number] 08:00:15 Test Item Value Reference Range Interpretation Comments Sodium Level (test 142.0 mmol/L 135.0-145.0 code = Sodium Level) Potassium Level 4.1 mmol/L 3.5-5.1 (test code = Potassium Level) Chloride Level (test 101 mmol/L 98-105 code = Chloride Level) CO2 (test code = 30 mmol/L 22-29 H CO2) Anion Gap (test code 11 mmol/L 7-16 = Anion Gap) BUN (test code = 17.80 mg/dL 8.00-23.00 BUN) Creatinine Level 1.10 mg/dL 0.70-1.20 (test code = Creatinine Level) BUN/Creat Ratio 16 N (test code = BUN/Creat Ratio) Glucose Level (test 125 mg/dL 70-115 H code = Glucose Level) Calcium Level (test 9.8 mg/dL 8.3-10.5 code = Calcium Level) Alk Phos (test code 73 U/L 40-129 = Alk Phos) Bilirubin Total 0.2 mg/dL 0.1-0.9 (test code = Bilirubin Total) Albumin Level (test 4.0 g/dL 3.5-5.2 code = Albumin Level) Protein Total (test 6.6 g/dL 6.4-8.3 code = Protein Total) ALT (test code = 11 U/L 1-41 ALT) AST (test code = 11 U/L 1-40 AST) Globulin (test code 2.6 g/dL 2.9-3.1 L = Globulin) A/G Ratio (test code 1.5 ratio N = A/G Ratio) eGFR AA (test code = >60 N eGFR (e stimated eGFR AA) mL/min/1.73 m2 Glomerular Filtration Rate ) is an estimated va lue, calculated from the patient's serum creatinine usin g the MDRD equation. It is NOT the patient 's actual GFR. The eGFR provides a more clinically usef ul measure of kidn ey disease than se rum creatinine alone.This calculation conner es sex and race in to account, if the information is provided. If th e race is not provided, and t he patient is -Doris n, multiply by 1.2 12. If sex is not provided, and t he patient is fema le, multiply by 0.7 42. Results for pat ients <18 years of ag e have not been validated by th e MDRD study and should be interpreted wit h caution. eGFR R esult Interpretation: eGFR > or = 60 is in the Normal RangeeGF R < 60 may mean kid ondina diseaseeGFR < 1 5 may mean kidney failure Rang es recommended by the National Kidney Foundation, http://nkdep.ni h.gov eGFR Non-AA (test >60.00 N eGFR (james mated code = eGFR Non-AA) mL/min/1.73 m2 Glomer ular Filtration Rate ) is an estimated va lue, calculated from the patient's serum creatinine usin g the MDRD equation. It is NOT the patient 's actual GFR. The eGFR provides a more clinically usef ul measure of kidn ey disease than se rum creatinine alone.This calculation conner es sex and race in to account, if the information is provided. If th e race is not provided, and t he patient is -Doris n, multiply by 1.2 12. If sex is not provided, and t he patient is fema le, multiply by 0.7 42. Results for pat ients <18 years of ag e have not been validated by th e MDRD study and should be interpreted wit h caution. eGFR R esult Interpretation: eGFR > or = 60 is in the Normal RangeeGF R < 60 may mean kid ondina diseaseeGFR < 1 5 may mean kidney failure Rang es recommended by the National Kidney Foundation, http://nkdep.ni h.gov Complete Blood Count with [id number] 07:43:03 Test Item Value Reference Range Interpretation Comments WBC (test code = WBC) 10.2 x10 4.4-10.5 RBC (test code = RBC) 5.03 x10 4.10-5.70 Hgb (test code = Hgb) 15.5 g/dL 13.4-17.4 Hct (test code = Hct) 45.3 % 38.7-52.0 MCV (test code = MCV) 90.10 fL 80.00-100.00 MCHC (test code = 34.20 g/dL 32.00-37.50 MCHC) RDW CV (test code = 13.2 % 11.5-14.5 RDW CV) MCH (test code = MCH) 30.8 pg 27.0-32.5 Platelets (test code = 225.0 x10 140.0-440.0 Platelets) MPV (test code = MPV) 12.4 fL N Slide Review (test Auto Auto Result cr eated by code = Slide Review) GL_SJM_ SLIDE_REV_AUTO nRBC (test code = 0 N nRBC) NRBC Abs (test code = 0.00 x10 N NRBC Abs) IPF (test code = IPF) 0 % N Automated [id number] 07:43:03 Test Item Value Reference Range Interpretation Comments Neutro Auto (test code = Neutro 60.4 % 36.0-70.0 Auto) Lymph Auto (test code = Lymph Auto) 22.2 % 12.0-44.0 [place] Auto (test code = [place] Auto) 10.7 % 0.0-11.0 Eos, Auto (test code = Eos, Auto) 5.4 % 0.0-7.0 Basophil Auto (test code = Basophil 0.8 % 0.0-2.0 Auto) Neutro Absolute (test code = Neutro 6.2 x10 1.6-7.4 Absolute) Lymph Absolute (test code = Lymph 2.27 x10 .50-4.60 Absolute) [place] Absolute (test code = [place] 1.09 x10 .00-1.20 Absolute) Eos Absolute (test code = Eos 0.55 x10 0.00-0.74 Absolute) Baso Absolute (test code = Baso 0.08 x10 0.00-0.21 Absolute) IG [id number] 07:43:03 Test Item Value Reference Range Interpretation Comments IG (test code = IG) 0.5 % 0.0-5.0 IG Abs (test code = IG Abs) 0 x10 N CBC W Auto Differential panel - [id number] 10:03:00 Test Item Value Reference Range Interpretation Comments white blood count (test code = 9.9 K/uL 4.0-12.3 white blood count) red blood count (test code = red 5.33 M/uL 3.80-5.80 blood count) Hemoglobin [Mass/volume] in Blood 16.5 g/dL 11.67-17.22 (test code = 718-7) hematocrit (test code = hematocrit) 49.6 % 35.0-51.0 Erythrocyte mean corpuscular volume 93.1 fL 78-96 [Entitic volume] (test code = 42373-2) Erythrocyte mean corpuscular 31.0 pg 26.8-33.4 hemoglobin [Entitic mass] (test code = 73884-0) mean corpuscular HGB conc (test 33.3 g/dL 32.3-36.7 code = mean corpuscular HGB conc) red cell distribution width (test 12.4 % 11.6-15.4 code = red cell distribution width) Platelets [#/volume] in Blood (test 237 K/uL 115-328 code = 40732-1) Platelet mean volume [Entitic 11.4 fL 8.4-11.8 volume] in Blood (test code = 05755-8) Neutrophils.band form/100 58.7 % 44.7-82.4 leukocytes in Blood (test code = 28557-3) Lymphocytes/100 leukocytes in Body 24.9 % 10.0-50.0 fluid (test code = 17340-4) Monocytes/100 leukocytes in Blood 9.8 % 3.9-13.4 by Automated count (test code = 5905-5) Eosinophils/100 leukocytes in Blood 5.4 % 0.0-6.43 by Automated count (test code = 713-8) Basophils/100 leukocytes in Blood 1.2 % 0.0-0.72 H by Automated count (test code = 706-2) [facility] [id number] 10:03:00 NeutrophilsLymphocyteMonocyteEosinophilBasophilPlatelet EstimatePlatelet MorphologyPoikilocytosisTarget CellsMaAllegiance Specialty Hospital of GreenvillePT/[id number] 10:03:00 Test Item Value Reference Range Interpretation Comments prothrombin time (test code = 10.9 seconds 10.3-12.3 prothrombin time) INR in Blood by Coagulation 0.99 assay (test code = 41096-7) [facility] Hospitalpartial thromboplastin [id number] 10:03:00 Test Item Value Reference Range Interpretation Comments INR in Blood by Coagulation 26.9 seconds 22.5-37.0 assay (test code = 43600-0) [facility]Com[facility] 2000 panel - Serum or Plasma 2019-02-02 10:03:00 Test Item Value Reference Range Interpretation Comments glucose (test code = glucose) 126 mg/dL 82-115 H Urea nitrogen [Mass/volume] in 25 mg/dL 8-23 H Serum or Plasma (test code = 3094-0) Osmolality of Serum or Plasma 287 280-300 (test code = 2692-2) creatinine (test code = 1.1 mg/dL 0.70-1.20 creatinine) glomerular filtration rate (test >60.00 code = glomerular filtration rate) Urea nitrogen/Creatinine [Mass 22.7 12-20 H Ratio] in Serum or Plasma (test code = 3097-3) sodium level (test code = sodium 141 mmol/L 135-145 level) Potassium [Moles/volume] in Body 3.8 mmol/L 3.5-5.2 fluid (test code = 2821-7) chloride level (test code = 100 mmol/L 98-108 chloride level) CO2 (test code = CO2) 26 mmol/L 21-32 anion gap (test code = anion gap) 18.8 mEq/L 12-20 calcium level (test code = calcium 9.8 mg/dL 8.8-10.2 level) total protein (test code = total 7.4 g/dL 6.6-8.7 protein) albumin (test code = albumin) 4.2 g/dL 3.5-5.2 globulin (test code = globulin) 3.2 gm/dL A/G ratio (test code = A/G ratio) 1.3 >1.0 bilirubin,total (test code = 0.3 mg/dL 0.0-1.2 bilirubin,total) AST/SGOT (test code = AST/SGOT) 13 U/L 15-40 L Alanine aminotransferase 14 U/L 0-41 [Enzymatic activity/volume] in Serum or Plasma (test code = 1742-6) Alkaline phosphatase [Enzymatic 71 U/L 40-130 activity/volume] in Serum or Plasma (test code = 6768-6) [facility] with [id number] 00:27:00 Test Item Value Reference Range Interpretation Comments WBC (test code = WBC) 8.1 K/cumm 4.4-10.5 N RBC (test code = RBC) 4.55 M/cumm 4.10-5.70 N Hemoglobin (test code = HGB) 15.4 gm/dL 13.4-17.4 N Hematocrit (test code = HCT) 41.7 % 38.7-52.0 N MCV (test code = MCV) 91.7 fL 80-100 N MCH (test code = MCH) 33.8 pg 27.0-32.5 H MCHC (test code = MCHC) 36.8 g/dL 32.0-37.5 N RDW (test code = RDW) 13.5 % 11.5-14.5 N Platelet Count (test code = 172 K/cumm 140-440 N PLTCT) MPV (test code = MPV) 12.6 fL Diff Method (test code = DIFFM) Auto Neutrophil (test code = NEUT) 60.8 % 36-70 N Lymphocyte (test code = LYMPH) 25.3 % 12-44 N Monocyte (test code = MONO) 12.9 % 0-11 H Eosinophil (test code = EOS) 0.2 % 0-7 N Basophil (test code = BASO) 0.9 % 0-2 N Neutro Abs (test code = ANEUT) 4.9 K/cumm 1.6-7.4 N Lymph Abs (test code = ALYMPH) 2.0 K/cumm 0.5-4.6 N [place] Abs (test code = AMONO) 1.0 K/cumm 0.0-1.2 N Eos Abs (test code = AEOS) 0.01 K/cumm 0.00-0.74 N Baso Abs (test code = ABASO) 0.1 K/cumm 0.00-0.21 N Comprehensive Metabolic [id number] 00:26:00 Test Item Value Reference Range Interpretation Comments Sodium (test code = 139 mmol/L 135-145 N NA) Potassium (test 4.3 mmol/L 3.5-5.1 N code = K) Chloride (test code 100 mmol/L 98-105 N = CL) Carbon Dioxide 30 mmol/L 22-29 H (test code = CO2) Glucose (test code 95 mg/dL 70-115 N = GLU) Blood Urea Nitrogen 15 mg/dL 8-23 N (test code = BUN) Creatinine (test 1.0 mg/dL 0.7-1.2 N code = CREAT) Calcium (test code 9.7 mg/dL 8.3-10.5 N = CA) Prot Total (test 6.6 g/dL 6.4-8.3 N code = TP) Albumin (test code 4.0 g/dL 3.5-5.2 N = ALB) A/G Ratio (test 1.5 Ratio code = AGRATIO) Globulin (test code 2.6 2.9-3.1 L = GLOB) Bili Total (test 0.4 mg/dL 0.1-0.9 N code = TBIL) Alk Phos (test code 54 U/L 40-129 N = APHOS) AST (test code = 21 U/L 1-40 N AST) ALT (test code = 23 U/L 1-41 N ALT) BUN/Creatinine 15.0 Ratio (test code = BCRATIO) Anion Gap (test 9 mmol/L 7-16 N code = AGAP) Estimated GFR (test >60 eGFR (es timated code = GFR) mL/min/1.73m2 Glomerular Servando tration Rate) is an est imated value,calculate d from the patient's s gopi creatinine usin g the MDRD equation.I t is NOT the patient 's actual GFR. The eGFR provides a more clinicallyusefu l measure of kidn ey disease than se rum creatinine alone.This calculation conner es sex and race into account, if the informationis provided. If th e race is not provided , and the patient isAfrican-Ameri can, multiply by 1.2 12. If sex is not prov ided, and thepatient is female, multipl y by 0.742. Results for patients <18 ye ars ofage have not been validated by th e MDRD study and shoul d be interpretedwith caution.eGFR Re sult Interpretation: eGFR > or = 60 is in t he Normal RangeeGF R < 60 may mean kidney diseaseeGFR < 1 5 may mean kidney failureRange s recommended by the National Kidney Foundation,http ://nkd ep.nih.gov Lipid [id number] 00:26:00 Test Item Value Reference Range Interpretation Comments Cholesterol (test 187 mg/dL 0-200 N code = CHOL) Triglycerides (test 142 mg/dL 9-200 N code = TRIG) HDL (test code = 30 mg/dL 40-60 L HDL) Chol/HDL (test code 6.2 Ratio 0.0-5.0 H = CHOLPHDL) LDL, Calculated 129 mg/dL 0-130 N (NOTE)RISK O F HEART (test code = LDLC) DISEASEPu blished by [place] Heart AssociationAnal yte Optim al Boderline Increased RiskC HOL <200 200-239 >240TRI G <150 150-199 >200HDL Male: >60 <40HDL Female: >60 <50 LDL < 100 130-15 9 >160 LDL NEAR OPTIMAL IS 100- 129 VLDL (test code = 28 mg/dL 5-40 N VLDL) LDL/HDL (test code = 4 LDLPHDL)
[2022-01-04] MEDS ORDERED: ONDANSETRON 4 MG/2 ML VIAL ONE (21:29)
[2022-01-04] MEDS ORDERED: MORPHINE 4 MG/ML SYR ONE (21:29)
[2022-01-04 21:44] LABS: Absolute Lymphocytes (CBC) 4.1 K/uL (0.7-4.9); Hematocrit 36.8 % (39.6-49.0); Lymphocytes % 16.4 % (15.3-44.8); MPV 10.5 fL (7.6-11.3); RBC Red Blood Cell Count 4.02 M/uL (4.33-5.43)
[2022-01-04 21:48] LABS: Protime INR 1.27
[2022-01-04] MEDS ORDERED: NA CHLORIDE 0.9% 250 ML ONE (21:49)
[2022-01-04] MEDS ORDERED: NA CHLORIDE 0.9% 1,000 ML ONE (21:49)
--- NOTE | 2022-01-04 22:04 | RAD REPORT ---
EXAM DESCRIPTION: RAD - Pelvis - 01/04/2022 9:20 pm CLINICAL HISTORY: Pelvic pain status post injury FINDINGS: Marked diastases of the pubic symphysis measuring 4.8 centimeters. Diastases of the sacroiliac joints likely indicating ligamentous injury. Inferior aspect of the film demonstrates bony structure abutting the medial aspect of the proximal ri ght femur. This is incompletely evaluated on this exam and could indicate acute fracture or probably less likely chronic chronic. Dedicated plain films of the right femur recommended
[2022-01-04] MEDS ORDERED: RSI MEDICATION KIT IV ONE (22:53)
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
[2022-01-05 04:33] VITALS: BP 92/72
--- NOTE | 2022-01-05 21:34 | RAD REPORT ---
EXAM DESCRIPTION: RIGHT FEMUR, TWO VIEWS XR. CLINICAL HISTORY: Pain. COMPARISON: None TECHNIQUE: AP and lateral views of the right femur. FINDINGS: There is significant deformity of the mid diaphysis of the right femur with exuberant repa rative bony proliferation along the medial cortex due to remote fracture. There is no acute fracture identified. There is generalized decreased bone mineralization. Right hip and knee appear intact. Inc luded right hemipelvis is intact. Normal soft tissues. IMPRESSION: Remote right femur mid shaft fracture. No acute finding. Electronically signed by: Holley Slater DO 01/04/2022 11:05 PM MEASUREMENT DEPARTMENT CHIEF CLERK Due to temporary technical issues with the PACS/Fluency reporting system, reports are being signed by the in house radiologists without review as a courtesy to insure prompt reporting. The interpreting radiologist is fully responsible for the content of the report.
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
--- NOTE | 2022-01-09 07:30 | EKG ---
Test Date: 2022-01-04 Test Time: 22:46:33 Card Cutter Helper: MEASUREMENT RESULTS: Intervals: Rate: 116 CO: QRSD: 166 QT: 432 QTc: 600 [place]: P: CO: QRS: -43 T: 111 INTERPRETIVE STATEMENTS: Undetermined rhythm Left axis deviation Nonspecific intraventricular block Inferior infarct, age undetermined Abnormal ECG No previous ECG available for comparison Electronically Signed On 01-09-22 07:23:16 CDT by Tay Retana
--- NOTE | 2022-01-09 07:30 | EKG ---
Test Date: 2022-01-04 Test Time: 22:47:14 Certified Pest Control Technician: MEASUREMENT RESULTS: Intervals: Rate: 94 ID: QRSD: [id number] QT: 474 QTc: 592 [place]: P: ID: [id number]: [id number] T: -41 INTERPRETIVE STATEMENTS: Undetermined rhythm Left bundle branch block Abnormal ECG Compared to ECG 01/04/2022 22:46:33 Left bundle-branch block now present Left-axis deviation no longer present Myocardial infarct finding no longer present Electronically Signed On 01-09-22 07:23:15 CDT by Tay Retana
== END 2022-01-05 04:23 | disposition expired ==
LOC: ER 21:07
DX: S06.5X9A Traumatic subdural hemorrhage with loss of consciousness of unspecified duration, initial encounter (principal); S32.811A Multiple fractures of pelvis with unstable disruption of pelvic ring, initial encounter for closed fracture; S36.81XA Injury of peritoneum, initial encounter; S27.329A Contusion of lung, unspecified, initial encounter; W30.89XA Contact with other specified agricultural machinery, initial encounter; Z79.01 Long term (current) use of anticoagulants; Z79.82 Long term (current) use of aspirin
CPT/HCPCS: 92960; 93005 ×3; 85025; 80048; 36415; 86900; 86850; 85610; 86901; 85730; 70450; 72125; 71260; 74177; 72170; 73552; 31500; 36430; 96375; 96374; 92950; 99291; Q9967; J0330; J0282; J0171; P9016 ×2; P9059; J7050; J7030 ×2; J2405